=== PATIENT | female | born 1990 | race Caucasian/White ===

== ENCOUNTER 2018-06-21 21:07 | Emergency (ER) | payer MEDICAID ==
[~2018-06-21] VITALS: Ht 172.7 cm; Wt 90.7 kg
[2018-06-22 02:51] VITALS: BP 144/80
== END 2018-06-22 02:52 | disposition home or self-care (01) ==
LOC: EDBD 21:07 → ER 21:09
DX: S16.1XXA Strain of muscle, fascia and tendon at neck level, initial encounter (principal); S20.212A Contusion of left front wall of thorax, initial encounter; M25.512 Pain in left shoulder; V43.52XA Car driver injured in collision with other type car in traffic accident, initial encounter; Y93.I9 Activity, other involving external motion; Y92.488 Other paved roadways as the place of occurrence of the external cause; Y99.8 Other external cause status
CPT/HCPCS: 70450; 71250; 72125; 74176